=== PATIENT | female | born 1980 | race Caucasian/White ===

== ENCOUNTER 2017-04-03 15:46 | Emergency (ER) | payer SELFPAY ==
[2017-04-03 16:07] VITALS: BMI 24.1
[2017-04-03] MEDS ORDERED: MECLIZINE HCL 25 MG TABLET (FP) PO ONE (16:27)
[2017-04-03] MEDS ORDERED: diazePAM 2 MG TABLET PO ONE ×2 (16:27→17:15)
[2017-04-03] MEDS ORDERED: diazePAM 2 MG TABLET ONE ×2 (16:37→17:53)
[2017-04-03] MEDS ORDERED: MECLIZINE HCL 25 MG TABLET (FP) ONE (16:37)
--- NOTE | 2017-04-03 16:51 | PDOC ---
History of Present Illness - General History Source: Patient Exam Limitations: No Limitations <Mulugeta Ramírez - Last Filed: 04/03/17 20:11> - General History Source: Patient, Old Records Exam Limitations: No Limitations - History of Present Illness Initial Comments: 04/03/17 17:45 The patient is a 36 year old female, with a significant past medical history of vertigo, who presents to the emergency department with dizziness since yesterday. The patient describes the dizziness as the room spinning. The patient reports that her symptoms feel similar to her previous episodes of vertigo. The patient states that the dizziness is exacerbated with movement, particularly when turning her head horizontally in either direction, but the patient does note that turning her head to the right is worse than when turning her head to the left. The patient states that her symptoms are somewhat alleviated when she sits still with her eyes closed. The patient reports taking 2 tablets of Meclizine yesterday, with no relief of symptoms. The patient denies chest pain or shortness of breath. The patient denies fever, chills, headache, nausea, vomiting or any recent illnesses. Allergies: None reported. Past Surgical History: None reported. Social History: Current some day smoker. Reports occasional alcohol consumption. Denies drug use. <Isabell Franco - Last Filed: 04/04/17 00:00> - General Chief Complaint: Lightheaded Stated Complaint: BLURRY VISION, DIZZINESS Time Seen by Provider: 04/03/17 16:16 Past History - Past Medical History Thyroid Disease: No Other medical history: VERTIGO - Psycho/Social/Smoking Cessation Hx Anxiety: No Suicidal Ideation: No Smoking Status: No Smoking History: Current some day smoker Have you smoked in the past 12 months: Yes Number of Cigarettes Smoked Daily: 1 Information on smoking cessation initiated: No Hx Alcohol Use: Yes (OCCASIONAL) Substance Use Type: None <Mulugeta Ramírez - Last Filed: 04/03/17 20:11> <Isabell Franco - Last Filed: 04/04/17 00:00> - Past Medical History Allergies/Adverse Reactions: Allergies Allergy/AdvReac Type Severity Reaction Status Date / Time No Known Allergies Allergy Verified 04/03/17 16:03 Home Medications: Ambulatory Orders Ibuprofen [Motrin -] 600 mg PO TID #21 tablet 05/16/15 Levofloxacin [Levaquin -] 500 mg PO DAILY #14 tablet 05/16/15 Metronidazole [Flagyl -] 500 mg PO DAILY #14 tablet 05/16/15 Ondansetron [Zofran Odt -] 4 mg SL TID #10 od.tablet 05/16/15 Oxycodone HCl/Acetaminophen [Percocet 5-325 mg Tablet -] 1 - 2 tab PO Q6H #14 tablet 05/16/15 Diazepam [Valium] 5 mg PO Q8H PRN #10 tablet MDD 3 04/03/17 Review of Systems - Review of Systems Able to Perform ROS?: Yes Comments:: 04/03/17 17:20 GENERAL/CONSTITUTIONAL: No fever or chills. No weakness. HEAD, EYES, EARS, NOSE AND THROAT: No change in vision. No ear pain or discharge. No sore throat. CARDIOVASCULAR: No chest pain or shortness of breath. RESPIRATORY: No cough, wheezing, or hemoptysis. GASTROINTESTINAL: No nausea, vomiting, diarrhea or constipation. GENITOURINARY: No dysuria, frequency, or change in urination. MUSCULOSKELETAL: No joint or muscle swelling or pain. No neck or back pain. SKIN: No rash. NEUROLOGIC: +Dizziness. No headache, vertigo, loss of consciousness, or change in strength/sensation. ENDOCRINE: No increased thirst. No abnormal weight change. HEMATOLOGIC/LYMPHATIC: No anemia, easy bleeding, or history of blood clots. ALLERGIC/IMMUNOLOGIC: No hives or skin allergy. <Isabell Franco - Last Filed: 04/04/17 00:00> *Physical Exam - Vital Signs Last Vital Signs Temp Pulse Resp BP Pulse Ox 98.3 F 65 19 119/61 97 04/03/17 16:03 04/03/17 16:03 04/03/17 16:03 04/03/17 16:03 04/03/17 16:03 <Mulugeta Ramírez - Last Filed: 04/03/17 20:11> - Vital Signs Last Vital Signs Temp Pulse Resp BP Pulse Ox 98.3 F 65 19 119/61 97 04/03/17 16:03 04/03/17 16:03 04/03/17 16:03 04/03/17 16:03 04/03/17 16:03 - Physical Exam Comments: 04/03/17 17:23 GENERAL: Awake, alert, and fully oriented, in no acute distress. HEAD: No signs of trauma. EYES: PERRLA, EOMI, sclera anicteric, conjunctiva clear. ENT: Auricles normal inspection, hearing grossly normal, nares patent, oropharynx clear without exudates. Moist mucosa. NECK: Normal ROM, supple, no lymphadenopathy, JVD, or masses. LUNGS: Breath sounds equal, clear to auscultation bilaterally. No wheezes, and no crackles. HEART: Regular rate and rhythm, normal S1 and S2, no murmurs, rubs or gallops. ABDOMEN: Soft, nontender, normoactive bowel sounds. No guarding, no rebound. No masses. EXTREMITIES: Normal range of motion, no edema. No clubbing or cyanosis. No cords, erythema, or tenderness. NEUROLOGICAL: Cranial nerves II through XII intact. Strength is 5/5 in both the upper and lower extremities. Normal speech, normal gait. No dysmetria. No dysarthria. Rapid alterations intact. Vertigo induced with horizontal eye movements, right worse than left. SKIN: Warm, dry, normal turgor, no rashes or lesions noted. <Isabell Franco - Last Filed: 04/04/17 00:00> ED Treatment Course - Medications Given in the ED: ED Medications Discontinued Medications Generic Name Dose Route Start Last Admin Trade Name Freq PRN Reason Stop Dose Admin Diazepam 2 mg 04/03/17 16:27 04/03/17 16:37 Valium - PO 04/03/17 16:28 2 mg ONCE ONE Administration Meclizine HCl 25 mg 04/03/17 16:27 04/03/17 16:37 Antivert - PO 04/03/17 16:28 25 mg ONCE ONE Administration <Mulugeta Ramírez - Last Filed: 04/03/17 20:11> - Medications Given in the ED: ED Medications Discontinued Medications Generic Name Dose Route Start Last Admin Trade Name Freq PRN Reason Stop Dose Admin Diazepam 2 mg 04/03/17 16:27 04/03/17 16:37 Valium - PO 04/03/17 16:28 2 mg ONCE ONE Administration Meclizine HCl 25 mg 04/03/17 16:27 04/03/17 16:37 Antivert - PO 04/03/17 16:28 25 mg ONCE ONE Administration <Isabell Franco - Last Filed: 04/04/17 00:00> Medical Decision Making - Medical Decision Making 04/03/17 16:50 A portion of this note was written by my scribe, under my supervision. Vital Signs Temp Pulse Resp BP Pulse Ox 98.3 F 65 19 119/61 97 04/03/17 16:03 04/03/17 16:03 04/03/17 16:03 04/03/17 16:03 04/03/17 16:03 36 year old female c/ hx of vertigo p/w vertigo since yesterday. The patient reports that this feels exactly like her previous peripheral vertigo episodes. She reports at rest that her symptoms are relieved but when she turns her head horizontal, particularly worse on the right or moves her eyes to the right, she develops severe vertigo. Denies chest pain, shortness of breath. She had taken 2 tablets of meclizine yesterday night but did not improve symptoms. Patient's neurological exam suggests peripheral vertigo. Will trial meclizine and valium and reassess. Pt reports that she is not . 04/03/17 20:05 Patient reports feeling moderately better but with symptoms small amounts of vertigo. However, the patient prefers to be going home instead of being admitted. She'll take a taxi home. We'll give her prescription of Valium and will instruct the patient to see how she does. If the symptoms worsen, I had instructed the patient return to the ER for further evaluation. Patient was understood agrees with plan. I discussed the physical exam findings, ancillary test results and final diagnoses with the patient. I answered all of the patient's questions. The patient was satisfied with the care received and felt comfortable with the discharge plan and treatment plan. The patient will call their primary care physician within 24 hours to arrange follow-up and will return to the Emergency Department with any new, persistant or worsening symptoms. <Mulugeta Ramírez - Last Filed: 04/03/17 20:11> *DC/Admit/Observation/Transfer - Discharge Dispostion Admit: No <Mulugeta Ramírez - Last Filed: 04/03/17 20:11> - Attestations Scribe Attestion: 05/03/17 17:19 Documentation prepared by Isabell Franco, acting as medical laboratory manager for Mulugeta Ramírez MD. <Isabell Franco - Last Filed: 04/04/17 00:00> Diagnosis at time of Disposition: Peripheral vertigo Qualifiers: Laterality: unspecified laterality Qualified Code(s): H81.399 - Other peripheral vertigo, unspecified ear - Discharge Dispostion Disposition: HOME Condition at time of disposition: Improved - Prescriptions Prescriptions: Diazepam [Valium] 5 mg PO Q8H PRN #10 tablet MDD 3 PRN Reason: Vertigo - Referrals Referrals: Larry Reed MD [Staff Physician] - - Patient Instructions Printed Discharge Instructions: DI for Vertigo, DI for Benign Paroxysmal Positional Vertigo Additional Instructions: Please take a tablet 25 mg of meclizine [id number] every 6-8 hours as needed for vertigo. For additional relief, take a tablet of Valium every 8 hours as needed. This medication will make you drowsy so please do not drink alcohol or drive on this medication. If the dizziness is uncontrollable or worsens, return to the ER for further evaluation. Please make an appointment with an media/instructional designer. Call to schedule appointment.
[2017-04-03] MEDS ORDERED: SODIUM CHLORIDE 1,000 ML IV STA (18:19)
[2017-04-03] MEDS ORDERED: diazePAM CARPU-JECT 10 MG/2 ML DISP.SYRIN IVPUSH ONE (18:19)
[2017-04-03] MEDS ORDERED: diazePAM CARPU-JECT 10 MG/2 ML DISP.SYRIN ONE (18:25)
[2017-04-03 20:28] VITALS: BP 118/74; PULSE 66; TEMP 98.6
== END 2017-04-03 20:25 | disposition home or self-care (01) ==
LOC: JER 15:46
PROC: 3E033NZ Introduction of Analgesics, Hypnotics, Sedatives into Peripheral Vein, Percutaneous Approach (ICD-10-PCS; principal; 2017-04-03)
PROC: 3E0337Z Introduction of Electrolytic and Water Balance Substance into Peripheral Vein, Percutaneous Approach (ICD-10-PCS; 2017-04-03)
DX: H81.399 Other peripheral vertigo, unspecified ear (principal); F17.210 Nicotine dependence, cigarettes, uncomplicated
CPT/HCPCS: 99283-25